=== PATIENT | male | born 1970 | race Caucasian/White ===

== ENCOUNTER 2016-12-04 16:12 | Inpatient (IN) | payer MEDICAID ==
[2016-12-04] MEDS ORDERED: ONDANSETRON 4 MG/2 ML VIAL IVP ONE (16:51)
[2016-12-04] MEDS ORDERED: NS 1,000 ML IV ONE ×2 (16:51→19:00)
[2016-12-04 17:09] LABS: % IMMATURE GRANULYOCYTES 0.5 % (0.0-1.1); ABSOLUTE IMMATURE GRANULOCYTES 0.06 10^3/uL (0.00-0.10); ADD DIFF? NO; ADD MORPH? NO; ADD SCAN? NO; ATYPICAL LYMPHOCYTE FLAG 0 (0-99); FRAGMENT RBC FLAG 0 (0-99); HEMATOCRIT 41.2 % (40.0-51.0); HEMOGLOBIN 14.2 g/dL (13.7-17.5); LEFT SHIFT FLG 0 (0-99); LIPEMIA HEMOLYSIS FLAG 90 (0-99); MEAN CELL HEMOGLOBIN 30.6 pg (27.9-34.1); MEAN CELL HEMOGLOBIN CONCENTR. 34.5 g/dL (32.4-36.7); MEAN CELL VOLUME 88.8 fL (81.5-99.8); MEAN PLATELET VOLUME 9.6 fL (8.7-11.7); PLATELET CLUMPS FLAG 0 (0-99); PLATELET COUNT 313 10^3/uL (150-400); RED BLOOD CELL COUNT 4.64 10^6/uL (4.40-6.38); RED CELL DISTRIBUTION WIDTH 13.9 % (11.5-15.2)
[2016-12-04] MEDS ORDERED: IOPAMIDOL (ISOVUE-300) 100 ML BTL ONE (17:21)
[2016-12-04 17:32] LABS: ALANINE AMINOTRANSFERASE 189 IU/L (21-72); ALBUMIN 3.4 g/dL (3.5-5.0); ALKALINE PHOSPHATASE 160 IU/L (38-126); ANION GAP 11 mEq/L (8-16); ASPARTATE AMINOTRANSFERASE 230 IU/L (17-59); BILIRUBIN,TOTAL 1.1 mg/dL (0.1-1.4); BILIRUBIN-CONJUGATED 0.6 mg/dL (0.0-0.5); BILIRUBIN-UNCONJUGATED 0.5 mg/dL (0.0-1.1); CALCIUM 9.2 mg/dL (8.5-10.4); CARBON DIOXIDE 23 mEq/l (22-31); CHLORIDE 103 mEq/L (97-110); CREATININE 1.3 mg/dL (0.7-1.3); GLOMERULAR FILTRATION RATE 59; GLUCOSE 112 mg/dL (70-100); POTASSIUM 3.9 mEq/L (3.5-5.2); SODIUM 137 mEq/L (134-144); TOTAL PROTEIN 6.8 g/dL (6.3-8.2)
[2016-12-04 18:24] LABS: BACTERIA 4+ /hpf (NONE SEEN); COLOR AMBER; LEUKOCYTE ESTERASE,URINE 3+ (NEGATIVE); MUCUS 2+ /lpf (NONE-1+); NITRITE,URINE NEGATIVE (NEGATIVE); RBC,URINE 50-182 /hpf (0-3); WBC,URINE 50-182 /hpf (0-3)
--- NOTE | 2016-12-04 18:29 | EDPHY ---
H & P Stated Complaint: liu low back and l testicular pain Time Seen by Provider: 12/04/16 16:24 HPI/ROS: CHIEF COMPLAINT: Back pain, lower abdominal pain, headache, fevers HISTORY OF PRESENT ILLNESS: This is a 46-year-old gentleman who presents to the emergency department reporting that for the last 2 days he has had "deep" back pain, and then developed radiation of the pain around bilaterally to the suprapubic region. This morning he evidently had a fever, chills, and vomiting multiple times. He denies any urinary complaints. He denies any burning when he goes to the bathroom. He denies to me any pain in his testicles. Patient denies any cough or shortness of breath. He has been complaining of a headache. Denies any diarrhea. No radiation of the pain into his lower extremities. No weakness in his legs, numbness, or tingling. The reports patient has frequent bright red blood per rectum, especially with any type of straining or lifting. Sounds like he might also have a history of having rectal prolapse. REVIEW OF SYSTEMS: Aside from elements discussed in the HPI, a comprehensive 10-point review of systems was reviewed and is negative. PAST MEDICAL HISTORY: Unclear colon surgery secondary to lower GI bleed. SOCIAL HISTORY: Patient is mainly [place] speaking. He is here with his . Occasional alcohol use. Nonsmoker. Does use marijuana. VITAL SIGNS Reviewed by me. Afebrile. GENERAL: Well-developed, well-nourished, pleasant, no obvious distress. HEENT: Atraumatic. Eyes: No icterus, no injection. Mouth: moist mucous membranes. No erythema or lesions. Neck: supple with no adenopathy. LUNGS: Clear to auscultation bilaterally, no wheezes, rhonchi or rales. CARDIAC: Regular rate and rhythm, no rubs, murmurs or gallops. ABDOMEN: Soft, very slightly distended. Tenderness in the bilateral lower quadrants and suprapubic region. : No testicular tenderness. No penile discharge. RECTAL: No stool in the vault. No blood. Slightly diminished rectal tone. BACK: No CVA tenderness. EXTREMITIES: No trauma. No edema. Range of motion is normal throughout. NEURO: Alert and oriented, grossly nonfocal. SKIN: Warm and dry, no rash. PSYCHIATRIC: Normal mentation, no agitation. - Personal History Current Tetanus/Diphtheria Vaccine: Unsure - Medical/Surgical History Hx Asthma: No Hx Chronic Respiratory Disease: No Hx Diabetes: No Hx Cardiac Disease: No Hx Renal Disease: No Hx Cirrhosis: No Hx Alcoholism: No Hx HIV/AIDS: No Hx Splenectomy or Spleen Trauma: No Other PMH: colon prob/was told needed resection .never followed up/rectal bleeding - Social History Smoking Status: Never smoked Constitutional: Initial Vital Signs Temperature (C) 36.9 C 12/04/16 16:19 Heart Rate 111 H 12/04/16 16:19 Respiratory Rate 20 12/04/16 16:19 Blood Pressure 106/83 H 12/04/16 16:19 O2 Sat (%) 96 12/04/16 16:19 O2 Delivery Mode Room Air Allergies/Adverse Reactions: petey Allergy (Severe, Verified 12/07/16 13:30) Anaphylaxis Home Medications: Medication Instructions Recorded Naproxen 500 mg PO BID PRN 12/04/16 Ondansetron Odt [Zofran Odt 4 mg 4 mg PO Q4HRS PRN #20 tab 12/09/16 (*)] Sulfamethox/Tmp 800/160 mg 1 tab PO BID #20 tab 12/09/16 [Bactrim Ds] Tamsulosin HCl [Flomax 0.4 MG (*)] 0.4 mg PO DAILY #30 cap 12/09/16 oxyCODONE IR [Oxycodone Ir (*)] 5 - 10 mg PO Q3HRS PRN #15 tab 12/09/16 Medical Decision Making ED Course/Re-evaluation: 46-year-old male presenting with back pain, fevers, vomiting, and lower abdominal pain and tenderness on examination[place] [id number], normal chemistries with the exception of elevated AST and ALT. CT scan demonstrates multifocal bilateral pyelonephritis. Urinalysis: 50-182 RBC per HPF, 50-182 WBC per HPF, 4+ bacteria. 3+ leukocyte esterase. Patient received a g of ceftriaxone. He will be admitted to the hospital for further treatment. Sepsis Evaluation Note: The patient presents to the ED with potential infection identified as pyelonephritis. The patient did have evidence of sepsis with heart rate greater than 90, and WBC greater than 12,000. Patient did not have evidence of severe sepsis. He has a normal lactic acid, normal creatinine, normal bili, normal coag studies. He remains afebrile in the emergency department. He received antibiotics in the emergency department. He was admitted to [facility]. Differential Diagnosis: Differential diagnosis for this patient's presenting complaints was considered including but not limited to urinary tract infection, pyelonephritis, epididymitis, colitis, renal insufficiency, perinephric abscess. Consult/Admit Bed Type: Dr. Melania Wheatley, [facility] - Data Points Laboratory Results: Laboratory Results 12/04/16 17:00 12/04/16 17:00 Medications Given: Discontinued Medications Acetaminophen (Tylenol) 650 mg PO Q4HRS PRN PRN Reason: Pain, Mild/Fever, Can Take PO Stop: 06/02/17 19:48 Last Admin: 12/09/16 07:47 Dose: 650 mg Acetaminophen (Tylenol) 1,000 mg PO ONCE ONE Stop: 12/04/16 20:18 Last Admin: 12/04/16 22:51 Dose: Not Given Enoxaparin Sodium (Lovenox) 40 mg SC DAILY ALANA Stop: 06/03/17 08:59 Last Admin: 12/09/16 07:49 Dose: 40 mg Hydromorphone HCl (Dilaudid) 0.2 - 0.4 mg IVP Q4HRS PRN PRN Reason: Pain, Severe Unable to Take PO Stop: 12/14/16 19:48 Last Admin: 12/06/16 22:56 Dose: 0.4 mg Sodium Chloride (Ns) 1,000 mls @ 0 mls/hr IV EDNOW ONE; Wide Open PRN Reason: Protocol Stop: 12/04/16 16:52 Last Admin: 12/04/16 18:01 Dose: 1,000 mls Ceftriaxone Sodium/Dextrose (Rocephin 1 Gm (Premix)) 50 mls @ 100 mls/hr IV EDNOW ONE PRN Reason: Protocol Stop: 12/04/16 19:09 Last Admin: 12/04/16 18:59 Dose: 50 mls Sodium Chloride (Ns) 1,000 mls @ 0 mls/hr IV ONCE ONE PRN Reason: Wide Open Stop: 12/04/16 19:01 Last Admin: 12/04/16 19:00 Dose: 1,000 mls Sodium Chloride (Ns) 1,000 mls @ 75 mls/hr IV CONT ALANA Stop: 06/02/17 19:59 Last Admin: 12/08/16 02:59 Dose: 1,000 mls Ceftriaxone Sodium/Dextrose (Rocephin 1 Gm (Premix)) 50 mls @ 100 mls/hr IV DAILY ALANA PRN Reason: Protocol Stop: 01/04/17 08:59 Last Admin: 12/09/16 07:48 Dose: 50 mls Ketorolac Tromethamine (Toradol) 15 mg IVP EDNOW ONE Stop: 12/04/16 19:06 Last Admin: 12/04/16 19:07 Dose: 15 mg Lorazepam (Ativan Injection) 1 mg IVP Q4HRS PRN PRN Reason: Anxiety, Unable to Take PO Stop: 06/02/17 20:16 Last Admin: 12/08/16 21:19 Dose: 1 mg Ondansetron HCl (Zofran) 4 mg IVP EDNOW ONE Stop: 12/04/16 16:52 Last Admin: 12/04/16 18:02 Dose: Not Given Ondansetron HCl (Zofran) 4 mg IVP Q4HRS PRN PRN Reason: Nausea/Vomiting, Can't Take PO Stop: 06/02/17 19:48 Last Admin: 12/08/16 18:47 Dose: 4 mg Oxycodone HCl (Oxycodone Ir) 5 - 10 mg PO Q3HRS PRN PRN Reason: Pain, Severe Able to Take PO Stop: 12/14/16 19:48 Last Admin: 12/08/16 08:53 Dose: 5 mg Tamsulosin HCl (Flomax) 0.4 mg PO DAILY [facility] Stop: 06/05/17 10:29 Last Admin: 12/09/16 07:48 Dose: 0.4 mg Departure - Departure Disposition: [facility] Acute Clinical Impression: Acute pyelonephritis Fever Qualifiers: Fever type: unspecified Qualified Code(s): R50.9 - Fever, unspecified Back pain Qualifiers: Back pain location: low back pain Chronicity: acute Back pain laterality: bilateral Sciatica presence: without sciatica Qualified Code(s): M54.5 - Low back pain Condition: Fair
[2016-12-04] MEDS ORDERED: KETOROLAC 15 MG/1 ML SDV IVP ONE (19:05)
[2016-12-04] MEDS ORDERED: KETOROLAC 15 MG/1 ML SDV ONE (19:05)
[2016-12-04] MEDS ORDERED: ZOLPIDEM TARTRATE 5 MG TAB PO PRN (19:49)
[2016-12-04] MEDS ORDERED: PROMETHAZINE HCL 25 MG/ML INJ IVP PRN (19:49)
[2016-12-04] MEDS ORDERED: ONDANSETRON 4 MG/2 ML VIAL IVP PRN (19:49)
[2016-12-04] MEDS ORDERED: ONDANSETRON DISINTEGRATING 4 MG TAB PO PRN (19:49)
--- NOTE | 2016-12-04 20:02 | PDGENHP ---
History and Physical - Chief Complaint flank pain, fever/chills - History of Present Illness 46 yo M with no significant PMH presenting with several days of bilateral flank pain associated with fevers and shaking chills. He notes that the pain is present both in his flanks and his lower abdomen, and has been getting worse daily. Today the pain was so severe he was unable to walk or sit up. He has had some pain with urination as well. He did not check his temperature at home but was having alternating sweats and chills, and today had shaking chills for an hour. He has never had similar issues in the past. He has not been around anyone sick. He does have issues of chronic rectal bleeding per his , she states it occurs whenever he exerts himself and has been so bad that he is now unable to work. He was worked up for this once in 2008 at [facility] and was told he has a tear in his colon and needs part of it removed, but was unable to fine a surgeon who accepted medicaid and never had follow up essentially. He states he bleeds at least a couple of times per week, sometimes associated with having a bm but not always. History Information - Allergies/Home Medication List Allergies/Adverse Reactions: petey Allergy (Severe, Unverified 12/04/16 19:34) Anaphylaxis Home Medications: Naproxen 500 mg PO BID PRN 12/04/16 [Last Taken 12/04/16] I have personally reviewed and updated: family history, medical history, social history, surgical history - Past Medical History GI bleed (as per HPI, weekly BRBPR) - Surgical History Reports: no pertinent surgical hx - Family History Positive for: non-pertinent - Social History Smoking Status: Never smoked Alcohol Use: Occasionally Drug Use: Marijuana Additional social history: for 23 years, 2 children and raising a grandchild, unemployed currently Review of Systems ROS: 10pt was reviewed & negative except for what was stated in HPI & below Physical Exam Temp Pulse Resp BP Pulse Ox 37.4 C 92 18 132/93 H 96 12/04/16 19:01 12/04/16 19:01 12/04/16 19:01 12/04/16 19:01 12/04/16 19:01 Constitutional: no apparent distress, appears nourished Eyes: PERRL, anicteric sclera Ears, Nose, Mouth, Throat: moist mucous membranes, hearing normal Cardiovascular: regular rate and rhythym, no murmur, rub, or gallop, No edema Respiratory: no respiratory distress, no rales or rhonchi Gastrointestinal: normoactive bowel sounds, soft, non-tender abdomen, tenderness (cva bilaterally), No guarding, No rebound Genitourinary: no bladder tenderness Skin: warm, normal color Musculoskeletal: full muscle strength, no muscle tenderness Neurologic: AAOx3 Psychiatric: interacting appropriately, not anxious, not encephalopathic Lab Data & Imaging Review 12/04/16 17:00 12/04/16 17:00 WBC 12.55 10^3/uL (3.80-9.50) H 12/04/16 17:00 RBC 4.64 10^6/uL (4.40-6.38) 12/04/16 17:00 Hgb 14.2 g/dL (13.7-17.5) 12/04/16 17:00 Hct 41.2 % (40.0-51.0) 12/04/16 17:00 MCV 88.8 fL (81.5-99.8) 12/04/16 17:00 MCH 30.6 pg (27.9-34.1) 12/04/16 17:00 MCHC 34.5 g/dL (32.4-36.7) 12/04/16 17:00 RDW 13.9 % (11.5-15.2) 12/04/16 17:00 Plt Count 313 10^3/uL (150-400) 12/04/16 17:00 MPV 9.6 fL (8.7-11.7) 12/04/16 17:00 Neut % (Auto) 76.5 % (39.3-74.2) H 12/04/16 17:00 Lymph % (Auto) 10.2 % (15.0-45.0) L 12/04/16 17:00 [place]dwell % (Auto) 12.0 % (4.5-13.0) 12/04/16 17:00 Eos % (Auto) 0.6 % (0.6-7.6) 12/04/16 17:00 Baso % (Auto) 0.2 % (0.3-1.7) L 12/04/16 17:00 Nucleat RBC Rel Count 0.0 % (0.0-0.2) 12/04/16 17:00 Absolute Neuts (auto) 9.61 10^3/uL (1.70-6.50) H 12/04/16 17:00 Absolute Lymphs (auto) 1.28 10^3/uL (1.00-3.00) 12/04/16 17:00 Absolute Monos (auto) 1.50 10^3/uL (0.30-0.80) H 12/04/16 17:00 Absolute Eos (auto) 0.07 10^3/uL (0.03-0.40) 12/04/16 17:00 Absolute Basos (auto) 0.03 10^3/uL (0.02-0.10) 12/04/16 17:00 Absolute Nucleated RBC 0.00 10^3/uL (0-0.01) 12/04/16 17:00 Immature Gran % 0.5 % (0.0-1.1) 12/04/16 17:00 Immature Gran # 0.06 10^3/uL (0.00-0.10) 12/04/16 17:00 VBG Lactic Acid 0.9 mmol/L (0.7-2.1) 12/04/16 18:50 Sodium 137 mEq/L (134-144) 12/04/16 17:00 Potassium 3.9 mEq/L (3.5-5.2) 12/04/16 17:00 Chloride 103 mEq/L (97-110) 12/04/16 17:00 Carbon Dioxide 23 mEq/l (22-31) 12/04/16 17:00 Anion Gap 11 mEq/L (8-16) 12/04/16 17:00 BUN 19 mg/dL (7-23) 12/04/16 17:00 Creatinine 1.3 mg/dL (0.7-1.3) 12/04/16 17:00 Estimated GFR 59 12/04/16 17:00 Glucose 112 mg/dL (70-100) H 12/04/16 17:00 Calcium 9.2 mg/dL (8.5-10.4) 12/04/16 17:00 Total Bilirubin 1.1 mg/dL (0.1-1.4) 12/04/16 17:00 Conjugated Bilirubin 0.6 mg/dL (0.0-0.5) H 12/04/16 17:00 Unconjugated Bilirubin 0.5 mg/dL (0.0-1.1) 12/04/16 17:00 AST 230 IU/L (17-59) H 12/04/16 17:00 ALT 189 IU/L (21-72) H 12/04/16 17:00 Alkaline Phosphatase 160 IU/L (38-126) H 12/04/16 17:00 Total Protein 6.8 g/dL (6.3-8.2) 12/04/16 17:00 Albumin 3.4 g/dL (3.5-5.0) L 12/04/16 17:00 Lipase 21 IU/L (23-300) L 12/04/16 17:00 Urine Color TIFFANY 12/04/16 08:00 Urine Appearance MODERATELY TURBID 12/04/16 08:00 Urine pH 5.0 (5.0-7.5) 12/04/16 08:00 Ur Specific Cooter 1.020 (1.002-1.030) 12/04/16 08:00 Urine Protein 2+ (NEGATIVE) H 12/04/16 08:00 Urine Ketones NEGATIVE (NEGATIVE) 12/04/16 08:00 Urine Blood 2+ (NEGATIVE) H 12/04/16 08:00 Urine Nitrate NEGATIVE (NEGATIVE) 12/04/16 08:00 Urine Bilirubin NEGATIVE (NEGATIVE) 12/04/16 08:00 Urine Urobilinogen 4.0 EU (0.2-1.0) H 12/04/16 08:00 Ur Leukocyte Esterase 3+ (NEGATIVE) H 12/04/16 08:00 Urine RBC 50-182 /hpf (0-3) H 12/04/16 08:00 Urine WBC 50-182 /hpf (0-3) H 12/04/16 08:00 Ur Epithelial Cells NONE SEEN /lpf (NONE-1+) 12/04/16 08:00 Urine Bacteria 4+ /hpf (NONE SEEN) H 12/04/16 08:00 Urine Mucus 2+ /lpf (NONE-1+) H 12/04/16 08:00 Urine Glucose NEGATIVE (NEGATIVE) 12/04/16 08:00 Stool Occult Bld Scrn NEGATIVE (NEGATIVE) 12/04/16 Unknown Visualized and Interpreted imaging results: Yes Interpretation: abd ct: multifocal bilateral pyelonephritis, ? rectosigmoid stricture, ? SPARKS Assessment & Plan Assessment: 46 yo M with no significant PMH presenting with pyelonephritis # pyelonephritis: noted both on imaging and by UA and history, cultures pending , started on ctx and will continue for now pending further cx data. He is HD stable and afebrile currently though has had intermittent rigors so risk of bacteremia seems high. Monitoring cultures, will tx pain with apap/opiates. 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 Will attempt to get records from [facility], check an occult blood and consider surgical vs GI consultation vs barium enema examination pending [facility] records (could not find in [facility]). # possible bladder outlet obstruction: noted on ct but patient reports urinating well, will monitor UOP and check serial PVR for now # transaminitis: with ast>alt and mildly elevated alk phos, patient and deny heavy or daily etoh use, will trend for now # IP status, given sepsis and pyelonephritis and severe illness at presentation will need > 48 hours stay for eval/mgmt of above Patient new to my care. Old records reviewed and summarized as above. Further hx obtained from patients present at bedside. Care plan reviewed with ER doctor including plans for abx.
[2016-12-04] MEDS ORDERED: LORazepam 2 MG/ML INJ ONE (20:12)
[2016-12-04] MEDS: HYDROmorphONE/DILAUDID 1 MG/ML SYR IVP PRN (20:13)
[2016-12-04] MEDS: LORazepam 2 MG/ML INJ IVP PRN (20:15)
[2016-12-04] MEDS: ACETAMINOPHEN 325 MG TAB PO PRN (20:17)
[2016-12-04] MEDS ORDERED: ACETAMINOPHEN 500 MG TAB PO ONE (20:17)
[2016-12-04] MEDS: NS 1,000 ML IV SCH (22:27)
[2016-12-04] MEDS: oxyCODONE IR 5 MG TAB PO PRN (23:09)
[2016-12-05] MEDS: NS 1,000 ML IV SCH ×3 (05:00→17:36)
[2016-12-05 05:23] LABS: % IMMATURE GRANULYOCYTES 0.6 % (0.0-1.1); ABSOLUTE IMMATURE GRANULOCYTES 0.07 10^3/uL (0.00-0.10); ADD DIFF? NO; ADD MORPH? NO; ADD SCAN? NO; ATYPICAL LYMPHOCYTE FLAG 0 (0-99); FRAGMENT RBC FLAG 0 (0-99); HEMATOCRIT 34.7 % (40.0-51.0); HEMOGLOBIN 11.7 g/dL (13.7-17.5); LEFT SHIFT FLG 20 (0-99); LIPEMIA HEMOLYSIS FLAG 80 (0-99); MEAN CELL HEMOGLOBIN 30.6 pg (27.9-34.1); MEAN CELL HEMOGLOBIN CONCENTR. 33.7 g/dL (32.4-36.7); MEAN CELL VOLUME 90.8 fL (81.5-99.8); MEAN PLATELET VOLUME 10.1 fL (8.7-11.7); PLATELET CLUMPS FLAG 0 (0-99); PLATELET COUNT 262 10^3/uL (150-400); RED BLOOD CELL COUNT 3.82 10^6/uL (4.40-6.38); RED CELL DISTRIBUTION WIDTH 14.3 % (11.5-15.2)
[2016-12-05 05:31] LABS: ALANINE AMINOTRANSFERASE 181 IU/L (21-72); ALBUMIN 2.7 g/dL (3.5-5.0); ALKALINE PHOSPHATASE 122 IU/L (38-126); ANION GAP 8 mEq/L (8-16); ASPARTATE AMINOTRANSFERASE 149 IU/L (17-59); BILIRUBIN,TOTAL 0.7 mg/dL (0.1-1.4); BILIRUBIN-CONJUGATED 0.5 mg/dL (0.0-0.5); BILIRUBIN-UNCONJUGATED 0.2 mg/dL (0.0-1.1); CARBON DIOXIDE 22 mEq/l (22-31); CHLORIDE 110 mEq/L (97-110); GLOMERULAR FILTRATION RATE > 60; GLUCOSE 94 mg/dL (70-100); POTASSIUM 4.3 mEq/L (3.5-5.2); SODIUM 140 mEq/L (134-144); TOTAL PROTEIN 5.4 g/dL (6.3-8.2)
[2016-12-05] MEDS: HYDROmorphONE/DILAUDID 1 MG/ML SYR IVP PRN ×3 (09:45→21:31)
[2016-12-05] MEDS: ACETAMINOPHEN 325 MG TAB PO PRN ×3 (09:45→19:42)
[2016-12-05] MEDS: ENOXAPARIN 40 MG/0.4 ML SYR SC SCH (09:46)
--- NOTE | 2016-12-05 15:23 | ASMTCASEMG ---
Living Arrangements What is your living Answers: With Spouse arrangement? Who do you live with? Type Of Residence What kind of residence do Answers: Apartment you live in? Discharge Plan Comments Coordination Status Comments Notes: Spoke w/RN, pt lives independently w/. Anticipate will dc home w/support of when medically stable. CM available for any changes. Date Signed: 12/05/2016 03:23 PM Electronically Signed By:Carley Mcnally
--- NOTE | 2016-12-05 16:32 | HOSPPROG ---
Hospitalist Progress Note Assessment/Plan: 46-year-old male admitted with a finding of pyelonephritis. - Acute sepsis with tachycardia and leukocytosis and fever secondary to acute pyelonephritis with positive blood cultures for E coli. - BRBPR: Patient reported rectal bleeding for several years. reports symptoms and signs of what would sounds like rectal prolapse or hemorrhoids. Rectal exam today does not reveal any of that. By history there has been a need for a colonoscopy but due to financial reasons a benign able to obtain this. We are seeking records from [facility]. No stools been obtained yet. Rectal exam today showed an empty rectal vault. - Possible bladder outlet obstruction: No evidence of this for the this time he has good urine output. - Transaminitis: We are trending the AST and ALT along with the ultimate phosphatase. If they persist and ultrasound will be obtained and evaluation further. Plan: Rocephin IV for the E coli bacteremia, check of stool guaiacs, follow AST ALT and a possible abdominal ultrasound. Ultimately the gentleman needs an outpatient GI consultation for this history of rectal bleeding. Case was discussed with the Infectious Disease, Dr. Robert Sparks. X-rays were reviewed with Radiology and by myself. Time: 50 minutes Subjective: reports he feels improved with less back pain and less abdominal pain. He continues to have some feelings of weakness and flushing without chest pain or shortness o r Objective: Vital Signs Temp Pulse Resp BP Pulse Ox 37.2 C 96 18 132/94 H 94 12/05/16 15:56 12/05/16 15:56 12/05/16 15:56 12/05/16 15:56 12/05/16 15:56 Laboratory Results 12/05/16 04:49 12/05/16 04:49 12/04/16 12/05/16 12/06/16 05:59 05:59 05:59 Output Total 300 350 Balance -300 -350 - Time Spent With Patient Time Spent with Patient: greater than 35 minutes Time Spent with Patient: Greater than 35 minutes spent on this patients care, greater than 50% of time spent counseling, educating, and coordinating care regarding the above mentioned plan. - Pending Discharge Pending Discharge Within 24 Hours: No Pending Discharge Within 48 Hours: No - Physical Exam Constitutional: uncomfortable Eyes: PERRL, anicteric sclera Ears, Nose, Mouth, Throat: moist mucous membranes, hearing normal Cardiovascular: regular rate and rhythym, systolic murmur Respiratory: no respiratory distress, no rales or rhonchi, clear to auscultation Gastrointestinal: normoactive bowel sounds, soft, non-tender abdomen, no palpable masses, other ( right and left CVA regions are both tender without signs of erythema or trauma.) Genitourinary: no bladder fullness Skin: warm Musculoskeletal: generalized weakness Neurologic: AAOx3, CN II-XII Intact Psychiatric: interacting appropriately ICD10 Worksheet Patient Problems: Problems Problem Status Onset Acute pyelonephritis Acute Fever Acute Back pain Acute
[2016-12-06] MEDS: NS 1,000 ML IV SCH ×4 (00:21→22:56)
[2016-12-06 05:19] LABS: % IMMATURE GRANULYOCYTES 0.7 % (0.0-1.1); ABSOLUTE IMMATURE GRANULOCYTES 0.07 10^3/uL (0.00-0.10); ADD DIFF? NO; ADD MORPH? NO; ADD SCAN? NO; ATYPICAL LYMPHOCYTE FLAG 0 (0-99); FRAGMENT RBC FLAG 0 (0-99); HEMATOCRIT 36.8 % (40.0-51.0); HEMOGLOBIN 12.8 g/dL (13.7-17.5); LEFT SHIFT FLG 10 (0-99); LIPEMIA HEMOLYSIS FLAG 90 (0-99); MEAN CELL HEMOGLOBIN 30.7 pg (27.9-34.1); MEAN CELL HEMOGLOBIN CONCENTR. 34.8 g/dL (32.4-36.7); MEAN CELL VOLUME 88.2 fL (81.5-99.8); MEAN PLATELET VOLUME 9.9 fL (8.7-11.7); PLATELET CLUMPS FLAG 0 (0-99); PLATELET COUNT 306 10^3/uL (150-400); RED BLOOD CELL COUNT 4.17 10^6/uL (4.40-6.38); RED CELL DISTRIBUTION WIDTH 14.3 % (11.5-15.2)
[2016-12-06 05:35] LABS: ALANINE AMINOTRANSFERASE 154 IU/L (21-72); ALBUMIN 2.8 g/dL (3.5-5.0); ALKALINE PHOSPHATASE 126 IU/L (38-126); ANION GAP 11 mEq/L (8-16); ASPARTATE AMINOTRANSFERASE 74 IU/L (17-59); BILIRUBIN,TOTAL 0.6 mg/dL (0.1-1.4); CALCIUM 8.8 mg/dL (8.5-10.4); CARBON DIOXIDE 21 mEq/l (22-31); CHLORIDE 106 mEq/L (97-110); CREATININE 0.8 mg/dL (0.7-1.3); GLOMERULAR FILTRATION RATE > 60; GLUCOSE 83 mg/dL (70-100); POTASSIUM 3.5 mEq/L (3.5-5.2); SODIUM 138 mEq/L (134-144); TOTAL PROTEIN 5.8 g/dL (6.3-8.2)
[2016-12-06] MEDS: HYDROmorphONE/DILAUDID 1 MG/ML SYR IVP PRN ×3 (06:45→22:56)
--- NOTE | 2016-12-06 06:51 | HOSPPROG ---
Hospitalist Progress Note Assessment/Plan: 46-year-old male admitted with a finding of pyelonephritis. - Acute sepsis, POA, with tachycardia and leukocytosis and fever secondary to acute pyelonephritis with positive blood cultures for E coli. Review of the CT scan shows significant bilateral pyelonephritis and a very trabeculated irregular and thickened bladder wall. This is likely the source of his infection. Today in the last 24 hours patient has been afebrile and he is improving. He has not had the chills that he had yesterday. - BRBPR: Patient reported rectal bleeding for several years. reports symptoms and signs of what would sounds like rectal prolapse or hemorrhoids. Rectal exam today does not reveal any of that. By history there has been a need for a colonoscopy but due to financial reasons a benign able to obtain this. We are seeking records from [facility]. No stools been obtained yet. Rectal exam today showed an empty rectal vault. - Possible bladder outlet obstruction: No evidence of this for the this time he has good urine output. - Transaminitis: We are trending the AST and ALT along with the ultimate phosphatase. LFTs are improving and a hepatitis panel was pending. Is probable that the transaminitis is secondary to acute sepsis. Plan: Rocephin IV for the E coli bacteremia, check of stool guaiacs, follow AST ALT and a possible abdominal ultrasound. There is no evidence of rectal bleeding and no signs of hemorrhoids either internal or external. The with the findings on CT scan abnormal bladder is possible that the bleeding was urinary and not rectal. Urology consult has been requested. The case was reviewed with Infectious Disease and the CT scan was read personally by myself and then reviewed with Radiology. We can find no colonic abnormality and his bowels are moving normally so that an outpatient colonoscopy seems more prudent at this time. Time: 50 minutes Subjective: Reports he is feeling improved. His appetite is improving he has not had chills and he denies chest pain or shortness of breath he says his back still hurts but is less than yesterday. There is no anterior abdominal pain and no dysuria. Objective: Vital Signs Temp Pulse Resp BP Pulse Ox 37.1 C 88 16 135/92 H 95 12/06/16 03:58 12/06/16 03:58 12/06/16 03:58 12/06/16 03:58 12/06/16 03:58 Laboratory Results 12/06/16 04:53 12/06/16 04:53 12/05/16 12/06/16 12/07/16 05:59 05:59 05:59 Intake Total 3807 Output Total 300 1550 Balance -300 2257 Selected Entries 12/04/16 12/05/16 12/06/16 20:43 20:00 00:00 Temperature (C) 39.3 C H Blood Pressure 147/97 H 126/88 H 12/06/16 03:58 Temperature (C) 37.1 C Blood Pressure 135/92 H Laboratory Tests 12/04/16 12/05/16 12/06/16 17:00 04:49 04:53 WBC 12.55 H 11.32 H 9.92 H Hgb 12.8 L - Time Spent With Patient Time Spent with Patient: greater than 35 minutes Time Spent with Patient: Greater than 35 minutes spent on this patients care, greater than 50% of time spent counseling, educating, and coordinating care regarding the above mentioned plan. - Pending Discharge Pending Discharge Within 24 Hours: No Pending Discharge Within 48 Hours: No - Physical Exam Constitutional: no apparent distress Eyes: PERRL, anicteric sclera Ears, Nose, Mouth, Throat: moist mucous membranes, hearing normal Cardiovascular: regular rate and rhythym, no murmur, rub, or gallop Respiratory: no respiratory distress, no rales or rhonchi, clear to auscultation Gastrointestinal: normoactive bowel sounds, soft, non-tender abdomen, no palpable masses, other ( CVA region bilaterally is tender to palpation without signs of trauma ecchymosis or erythema. There is no voluntary or involuntary guarding of the abdom.) Genitourinary: no bladder fullness Skin: warm Musculoskeletal: full muscle strength Neurologic: AAOx3, CN II-XII Intact Psychiatric: interacting appropriately ICD10 Worksheet Patient Problems: Problems Problem Status Onset Acute pyelonephritis Acute Fever Acute Back pain Acute
[2016-12-06] MEDS: ENOXAPARIN 40 MG/0.4 ML SYR SC SCH (08:24)
[2016-12-06] MEDS: ACETAMINOPHEN 325 MG TAB PO PRN (16:22)
[2016-12-06] MEDS ORDERED: hydrALAZINE 10 MG TAB PO PRN (19:50)
[2016-12-07] MEDS: NS 1,000 ML IV SCH ×2 (05:11→13:29)
[2016-12-07 06:21] LABS: ABSOLUTE IMMATURE GRANULOCYTES 0.07 10^3/uL (0.00-0.10); ADD DIFF? NO; ADD MORPH? NO; ADD SCAN? NO; ATYPICAL LYMPHOCYTE FLAG 10 (0-99); FRAGMENT RBC FLAG 0 (0-99); HEMATOCRIT 38.6 % (40.0-51.0); HEMOGLOBIN 13.3 g/dL (13.7-17.5); LEFT SHIFT FLG 0 (0-99); LIPEMIA HEMOLYSIS FLAG 90 (0-99); MEAN CELL HEMOGLOBIN 30.6 pg (27.9-34.1); MEAN CELL HEMOGLOBIN CONCENTR. 34.5 g/dL (32.4-36.7); MEAN CELL VOLUME 88.7 fL (81.5-99.8); MEAN PLATELET VOLUME 9.8 fL (8.7-11.7); PLATELET CLUMPS FLAG 0 (0-99); PLATELET COUNT 329 10^3/uL (150-400); RED BLOOD CELL COUNT 4.35 10^6/uL (4.40-6.38); RED CELL DISTRIBUTION WIDTH 14.1 % (11.5-15.2)
[2016-12-07 06:45] LABS: ALANINE AMINOTRANSFERASE 132 IU/L (21-72); ALBUMIN 3.1 g/dL (3.5-5.0); ALKALINE PHOSPHATASE 125 IU/L (38-126); ANION GAP 11 mEq/L (8-16); ASPARTATE AMINOTRANSFERASE 53 IU/L (17-59); BILIRUBIN,TOTAL 0.5 mg/dL (0.1-1.4); CALCIUM 8.8 mg/dL (8.5-10.4); CARBON DIOXIDE 23 mEq/l (22-31); CHLORIDE 107 mEq/L (97-110); CREATININE 0.8 mg/dL (0.7-1.3); GLOMERULAR FILTRATION RATE > 60; GLUCOSE 88 mg/dL (70-100); POTASSIUM 3.8 mEq/L (3.5-5.2); SODIUM 141 mEq/L (134-144)
[2016-12-07] MEDS: ENOXAPARIN 40 MG/0.4 ML SYR SC SCH (08:49)
[2016-12-07] MEDS: oxyCODONE IR 5 MG TAB PO PRN ×2 (08:51→21:01)
--- NOTE | 2016-12-07 10:22 | HOSPPROG ---
Hospitalist Progress Note Assessment/Plan: # e. coli bacteremia d/t urinary source - cont rocephin; resistant to FQ - repeat BCx - ID consult # pyelonephritis - likely d/t SPARKS # possible SPARKS - start flomax; cont PVRs - urology f/u # sepsis, POA - resolved # elevated LFTs - viral serologies neg - follow # BRBPR - heme stable; exam without clear source - outpatient colonoscopy Objective: Vital Signs Temp Pulse Resp BP Pulse Ox 37.0 C 75 18 145/90 H 95 12/07/16 08:00 12/07/16 08:00 12/07/16 08:00 12/07/16 08:00 12/07/16 08:00 Laboratory Results 12/07/16 05:49 12/07/16 05:49 12/06/16 12/07/16 12/08/16 05:59 05:59 05:59 Intake Total 3807 600 Output Total 1550 650 Balance 2257 -50 ICD10 Worksheet Patient Problems: Problems Problem Status Onset Acute pyelonephritis Acute Back pain Acute Fever Acute
[2016-12-07] MEDS: TAMSULOSIN HCL 0.4 MG CAP PO SCH (11:24)
--- NOTE | 2016-12-07 18:48 | GCON ---
[f rep st] CONSULTATION INFECTIOUS DISEASE DATE OF CONSULTATION: 12/07/2016 REFERRING PHYSICIAN: Js Graham MD REASON FOR CONSULTATION: E. coli bacteremia associated with pyelonephritis. HISTORY OF PRESENT ILLNESS: The patient is a 46-year-old male without a significant past medical hi story, who I am asked to see in consultation for E. coli bacteremia associated with bilateral pyelon ephritis. The patient describes having a possible urinary tract infection in June, but does not th ink he received antibiotics, and had those symptoms resolve. Earlier this week the patient develope d bilateral flank pain. This was not associated with dysuria or urgency, although he may have had s ome associated frequency. He did have some lower abdominal pain as well. This subsequently was ass ociated with fever and shaking chills. Initial evaluation revealed a mild elevation in his white bl ood cell count, and blood cultures obtained at the time of admission are showing growth of E. coli. A urine culture is not available, although the patient's urine sample showed 50-182 red blood cells and white blood cells with 4+ bacteria. The patient has received antibiotic therapy with ceftriaxo ne, and feels clinically improved. He did have a maximal temperature on the day of admission of 39. 3. He has not experienced subsequent fever. His leukocytosis has resolved. The E. coli that has g rown in his blood is fluoroquinolone resistant. Given the above findings, I am now asked to assist in his ongoing management. PAST MEDICAL HISTORY: Possible UTI in June. His H and P also outlines a history of chronic rectal bleeding of unclear etiology. PAST SURGICAL HISTORY: Unremarkable. CURRENT MEDICATIONS: Ceftriaxone 1 g IV daily, Lovenox 40 mg subcu daily, Flomax 0.4 mg p.o. daily. ALLERGIES: No known drug allergies. SOCIAL HISTORY: The patient does not smoke. He drinks alcohol a few times per week, but does not t o excess. He does use occasional marijuana. FAMILY HISTORY: Diabetes mellitus. REVIEW OF SYSTEMS: Outside that noted in the HPI, the remainder of a 10 system review is unremarkab le. PHYSICAL EXAMINATION: VITAL SIGNS: Temperature 37.1, heart rate 76, respiratory rate 18, blood pre ssure 143/100. GENERAL: The patient is well nourished, well developed, no acute distress. He appe ars nontoxic. HEENT: There is no scleral icterus, conjunctival injection, or conjunctival petechia e. Oropharynx shows no thrush. Dentition is in fair repair. There is no nasal discharge. There i s no tenderness over the frontal, maxillary, or mastoid area. NECK: Supple without palpable lympha denopathy or thyromegaly. CHEST: Clear to auscultation bilaterally without adventitious sounds. R espiratory effort is normal. CARDIOVASCULAR: Regular rate and rhythm without murmurs, gallops, or rubs. ABDOMEN: Soft, nontender, nondistended. There is no palpable organomegaly. Bowel sounds ar e present. BACK: There is minimal left-sided CVA tenderness. MUSCULOSKELETAL: There is no cyanos is, clubbing, or edema. SKIN: No rashes are present. No stigmata of endocarditis. LYMPHATICS: N o cervical, supraclavicular, or inguinal nodes palpable. NEUROLOGIC: The patient is alert and inte racts appropriately examiner. Cranial nerves 2-12 are grossly intact. Sensation is grossly intact. LABORATORY DATA: White blood cell count 7.3, hematocrit 38.6, platelets 329, neutrophils 69%, lymph ocytes 17%. Serum creatinine 0.8, AST 53, ALT 132, alkaline phosphatase 125, bilirubin 0.5. Urinal ysis as previously outlined. Hepatitis a IgM is negative, hepatitis B surface antigen and core IgM are negative, hepatitis C antibody is negative. Blood cultures with 1 of 2 sets showing E. coli on 12/04/2016; repeat blood cultures from 12/07/[address] scan of the abdomen and pelvis shows peripheral low-density areas in both kidneys suggestive for pyelonephritis; there is comment that the urinary bladder looks hypertrophic, raising possibility of bladder outlet obstruction. IMPRESSION: Escherichia coli bacteremia due to pyelonephritis: The patient is clinically improving with ceftriaxone therapy. His isolate is susceptible to trimethoprim/sulfamethoxazole and is jaime lone resistant. Once he is tolerating p.o. intake better, I think he can be transitioned to Bactrim DS p.o. twice daily to complete a total of 14 days of therapy. He will need urologic evaluation ba sed on his age and gender as an outpatient once he has received full treatment, as it is unusual for a male in this age group to develop pyelonephritis. CT scan has raised possibility of bladder outl et obstruction, although he does not note any difficulty with urination. RECOMMENDATIONS: 1. Continue ceftriaxone pending improved p.o. intake. 2. Plan Bactrim DS 1 p.o. twice daily to complete therapy once able to transition to oral antibioti cs. 3. We will add on hepatitis B core antibody IgG to hepatitis testing. 4. We will need HIV screening at some point; I will discuss this with him in followup, as this was not able to be reviewed today due to visitors being present. 5. Agree with plans for outpatient urologic evaluation once the patient has completed treatment for pyelonephritis. 6. Thank you for this consultation. We will continue to follow the patient with you. /[id number]/MODL
[2016-12-07] MEDS: ACETAMINOPHEN 325 MG TAB PO PRN (19:44)
[2016-12-08] MEDS: oxyCODONE IR 5 MG TAB PO PRN ×2 (02:59→08:53)
[2016-12-08] MEDS: NS 1,000 ML IV SCH (02:59)
[2016-12-08 05:09] LABS: % IMMATURE GRANULYOCYTES 1.4 % (0.0-1.1); ABSOLUTE IMMATURE GRANULOCYTES 0.08 10^3/uL (0.00-0.10); ADD DIFF? NO; ADD MORPH? NO; ADD SCAN? NO; ATYPICAL LYMPHOCYTE FLAG 10 (0-99); FRAGMENT RBC FLAG 0 (0-99); HEMATOCRIT 38.5 % (40.0-51.0); HEMOGLOBIN 13.2 g/dL (13.7-17.5); LEFT SHIFT FLG 0 (0-99); LIPEMIA HEMOLYSIS FLAG 90 (0-99); MEAN CELL HEMOGLOBIN 30.5 pg (27.9-34.1); MEAN CELL HEMOGLOBIN CONCENTR. 34.3 g/dL (32.4-36.7); MEAN CELL VOLUME 88.9 fL (81.5-99.8); MEAN PLATELET VOLUME 9.6 fL (8.7-11.7); PLATELET CLUMPS FLAG 0 (0-99); PLATELET COUNT 375 10^3/uL (150-400); RED BLOOD CELL COUNT 4.33 10^6/uL (4.40-6.38)
[2016-12-08 05:18] LABS: ALANINE AMINOTRANSFERASE 114 IU/L (21-72); ALKALINE PHOSPHATASE 110 IU/L (38-126); ANION GAP 9 mEq/L (8-16); ASPARTATE AMINOTRANSFERASE 52 IU/L (17-59); BILIRUBIN,TOTAL 0.6 mg/dL (0.1-1.4); CALCIUM 9.1 mg/dL (8.5-10.4); CARBON DIOXIDE 23 mEq/l (22-31); CHLORIDE 107 mEq/L (97-110); CREATININE 0.9 mg/dL (0.7-1.3); GLOMERULAR FILTRATION RATE > 60; GLUCOSE 93 mg/dL (70-100); POTASSIUM 3.7 mEq/L (3.5-5.2); SODIUM 139 mEq/L (134-144); TOTAL PROTEIN 6.1 g/dL (6.3-8.2)
[2016-12-08] MEDS: ENOXAPARIN 40 MG/0.4 ML SYR SC SCH (08:53)
[2016-12-08] MEDS: TAMSULOSIN HCL 0.4 MG CAP PO SCH (08:53)
--- NOTE | 2016-12-08 10:00 | HOSPPROG ---
Hospitalist Progress Note Assessment/Plan: # e. coli bacteremia d/t urinary source - cont rocephin; plan course of bactrim per ID - repeat BCx NGTD - ID consult # pyelonephritis - likely d/t SPARKS # possible SPARKS - cont flomax; cont PVRs - urology f/u - check PSA here # sepsis, POA - resolved # elevated LFTs - viral serologies neg - follow # BRBPR - heme stable; exam without clear source - outpatient colonoscopy Subjective: back pain better today; says he is eating well; less nocturia last night Objective: Vital Signs Temp Pulse Resp BP Pulse Ox 36.9 C 76 14 145/90 H 95 12/08/16 08:00 12/08/16 08:00 12/08/16 08:00 12/08/16 08:00 12/08/16 08:00 Laboratory Results 12/08/16 04:55 12/08/16 04:55 12/07/16 12/08/16 12/09/16 05:59 05:59 05:59 Intake Total 600 150 Output Total 650 650 Balance -50 -500 - Physical Exam Constitutional: no apparent distress, appears nourished Cardiovascular: regular rate and rhythym, no murmur, rub, or gallop Respiratory: no respiratory distress, no rales or rhonchi, clear to auscultation Gastrointestinal: normoactive bowel sounds, soft, non-tender abdomen, no palpable masses ICD10 Worksheet Patient Problems: Problems Problem Status Onset Acute pyelonephritis Acute Fever Acute Back pain Acute
--- NOTE | 2016-12-08 14:41 | PCMIDPN ---
Assessment/Plan: Assessment/Plan: * E. coli bacteremia due to pyelonephritis: Clinically improved with resolution of fever and normalization of white blood cell count. Repeat blood cultures are no growth today. Tolerating p.o. intake today. If continued tolerance of p. o. intake, plan to transition to oral Bactrim DS twice daily tomorrow with total antibiotic treatment totaling 14 days. Will arrange for follow-up in my office post discharge. 12/08/16 14:33 Subjective: Patient feels significantly better. No complaints of residual flank pain or urinary symptoms. Tolerating oral intake without nausea or vomiting. Objective: Vital Signs Temp Pulse Resp BP Pulse Ox 36.7 C 76 14 126/91 H 94 12/08/16 11:50 12/08/16 11:50 12/08/16 11:50 12/08/16 11:50 12/08/16 11:50 Laboratory Results 12/08/16 04:55 12/08/16 04:55 12/07/16 12/08/16 12/09/16 05:59 05:59 05:59 Intake Total 600 150 Output Total 650 650 Balance -50 -500 Ceftriaxone # 5 Blood cultures 12/07/2016 no growth to date - Physical Exam General Appearance: alert, no apparent distress EENT: No scleral icterus Cardiac/Chest: regular rate, rhythm Abdomen: non-tender, No distended Back: No CVA tenderness ICD10 Worksheet Patient Problems: Problems Problem Status Onset Acute pyelonephritis Acute Back pain Acute Fever Acute
[2016-12-08] MEDS: ACETAMINOPHEN 325 MG TAB PO PRN ×2 (15:10→19:15)
[2016-12-08 19:26] VITALS: RESP 16
[2016-12-08] MEDS: LORazepam 2 MG/ML INJ IVP PRN (21:19)
[2016-12-09 05:09] LABS: % IMMATURE GRANULYOCYTES 1.9 % (0.0-1.1); ABSOLUTE IMMATURE GRANULOCYTES 0.11 10^3/uL (0.00-0.10); ADD DIFF? NO; ADD MORPH? NO; ADD SCAN? NO; ATYPICAL LYMPHOCYTE FLAG 20 (0-99); FRAGMENT RBC FLAG 0 (0-99); HEMATOCRIT 40.5 % (40.0-51.0); HEMOGLOBIN 13.9 g/dL (13.7-17.5); LEFT SHIFT FLG 10 (0-99); LIPEMIA HEMOLYSIS FLAG 90 (0-99); MEAN CELL HEMOGLOBIN 30.3 pg (27.9-34.1); MEAN CELL HEMOGLOBIN CONCENTR. 34.3 g/dL (32.4-36.7); MEAN CELL VOLUME 88.4 fL (81.5-99.8); MEAN PLATELET VOLUME 9.4 fL (8.7-11.7); PLATELET CLUMPS FLAG 0 (0-99); PLATELET COUNT 405 10^3/uL (150-400); RED BLOOD CELL COUNT 4.58 10^6/uL (4.40-6.38); RED CELL DISTRIBUTION WIDTH 13.8 % (11.5-15.2)
[2016-12-09 05:27] LABS: ALANINE AMINOTRANSFERASE 131 IU/L (21-72); ALBUMIN 3.4 g/dL (3.5-5.0); ALKALINE PHOSPHATASE 126 IU/L (38-126); ANION GAP 12 mEq/L (8-16); ASPARTATE AMINOTRANSFERASE 75 IU/L (17-59); BILIRUBIN,TOTAL 0.6 mg/dL (0.1-1.4); CALCIUM 9.4 mg/dL (8.5-10.4); CARBON DIOXIDE 22 mEq/l (22-31); CHLORIDE 108 mEq/L (97-110); CREATININE 0.8 mg/dL (0.7-1.3); GLOMERULAR FILTRATION RATE > 60; GLUCOSE 99 mg/dL (70-100); POTASSIUM 4.2 mEq/L (3.5-5.2); SODIUM 142 mEq/L (134-144); TOTAL PROTEIN 6.6 g/dL (6.3-8.2)
[2016-12-09 07:36] VITALS: BP 135/97; PULSE 84; TEMP 98.1; O2SAT 94
[2016-12-09] MEDS: ACETAMINOPHEN 325 MG TAB PO PRN (07:47)
[2016-12-09] MEDS: TAMSULOSIN HCL 0.4 MG CAP PO SCH (07:48)
[2016-12-09] MEDS: ENOXAPARIN 40 MG/0.4 ML SYR SC SCH (07:49)
--- NOTE | 2016-12-09 09:44 | GDS ---
[f rep st] DISCHARGE SUMMARY DISCHARGE DIAGNOSES: 1. Escherichia coli bacteremia, for quinolone resistant. 2. Pyelonephritis. 3. Suspected bladder outlet obstruction. 4. Reported history of rectal prolapse. 5. Sepsis, present on arrival. 6. Elevated liver function tests. HOSPITAL COURSE: A 46-year-old man admitted with pyelonephritis. Blood culture positive for fluoro quinolone resistant E coli. He has been seen by Infectious Disease. He has improved very well on I V Rocephin as an inpatient. Given sensitivity profile, will transition to Bactrim on discharge. He will get a total of a 14-day course. He will follow up with Dr. Anguiano of Infectious Disease. For his urologic issues, I have recommended outpatient urology followup. I have given him a referra l to see [facility]. He has elevated LFTs, viral serologies are negative. These labs should be followed. Consider HIV s creening as an outpatient. Platelets are slightly elevated on day of discharge. Should also follow these. For his reported rectal prolapse, I have given him a referral to see both GI of [facility], as well as our surgery group at this hospital, [facility], and [facility]. He will follow up with maurisio oneal. DISPOSITION: He is discharged home with his in stable condition. I saw him on the day of , and answered all his questions with the refrigeration mechanic. BILLING: I spent more than 30 minutes on the day of discharge coordinating care. /[id number]/MODL
--- NOTE | 2016-12-09 12:22 | ASDISCHSUM ---
Discharge Information Plan Status:Home with No Needs Medically Cleared to Leave: Discharge Date:12/09/2016 11:19 AM CM D/C Disposition:Home, Routine, Self-Care ADT D/C Disposition:Home, Routine, Self-Care Projected Discharge Date:12/09/2016 11:19 AM Transportation at D/C:Family Discharge Delay Reason: Follow-Up Date:12/09/2016 11:19 AM Discharge Slot: Final Diagnosis: Placement Information Patient Contact Information Contact Name:YESENIA Relationship: Address:[address] Work Phone: City:[place] Alternate Phone: [facility]/Zip Code:[place] [address] Email: Financial Information Financial Class: Primary Plan Desc:[employer] [place] Primary Plan Number:[id number] Secondary Plan Desc: Secondary Plan Number: Assessment Information [facility] Initial CM Assessment Living Arrangements What is your living Answers: With Spouse arrangement? Who do you live with? Type Of Residence What kind of residence do Answers: Apartment you live in? Discharge Plan Comments Coordination Status Comments Notes: Spoke w/RN, pt lives independently w/. Anticipate will dc home w/support of when medically stable. CM available for any changes. Date Signed: 12/05/2016 03:23 PM Electronically Signed By:Carley Mcnally Intervention Information
== END 2016-12-09 11:19 | disposition home or self-care (01) | DRG 872 ==
LOC: OBSVTOIN 19:49 → F3E 19:56
PROVIDERS: ADMIT Internal Medicine; ATTEND Internal Medicine Pulmonary Disease
DX: A41.51 Sepsis due to Escherichia coli [E. coli] (principal); N10 Acute pyelonephritis; B96.20 Unspecified Escherichia coli [E. coli] as the cause of diseases classified elsewhere; K62.5 Hemorrhage of anus and rectum; R74.0 Nonspecific elevation of levels of transaminase and lactic acid dehydrogenase [LDH]; R94.5 Abnormal results of liver function studies
CPT/HCPCS: 86704-90; G0103; G0472; J0696; J1170; J1650; J1885; J2060; J2405; Q9967